=== PATIENT | female | born 1970 | race Caucasian/White ===

== ENCOUNTER → 2018-10-22 | Outpatient (CLI) | payer OTHER ==
[~2018-10-22] MED LIST: LISI1TAB3 PO; LISI1TAB5 PO
[2018-10-22 11:23] LABS: ALANINE AMINOTRANSFERASE 16 U/L (12-78); ALBUMIN 3.8 g/dL (3.4-5.0); ANION GAP 7 mmol/L (5-15); CALCIUM 8.6 mg/dL (8.5-10.1); CHLORIDE 110 mmol/L (98-107); CREATININE 0.97 mg/dL (0.55-1.02)
[2018-10-22 11:25] LABS: ALKALINE PHOSPHATASE 67 U/L (45-117); BILIRUBIN,TOTAL 0.4 mg/dL (0.2-1.0)
== END | disposition home or self-care (01) ==
LOC: STAR 09:56
PROVIDERS: ATTEND Orthopaedic Surgery
DX: M20.11 Hallux valgus (acquired), right foot (principal); M79.671 Pain in right foot
CPT/HCPCS: 36415; 80053

== ENCOUNTER 2018-11-19 08:56 | Day surgery (SDC) | payer OTHER ==
[~2018-11-19] VITALS: Ht 177.8 cm; Wt 102.7 kg
[2018-11-19 09:17] VITALS: BP 129/84
[2018-11-19] MEDS ORDERED: LACTATED RINGERS 1,000 ML IV SCH (09:47)
[2018-11-19] MEDS ORDERED: MIDAZOLAM 1 MG/ML, 2ML ONE (10:09)
[2018-11-19] MEDS ORDERED: FENTANYL PF 100 MCG/2ML ONE ×2 (10:09→12:11)
[2018-11-19] MEDS ORDERED: LIDOCAINE 1%, 20ML ONE (10:13)
[2018-11-19] MEDS ORDERED: BUPIVACAINE/PF 0.5% ONE (10:13)
[2018-11-19] MEDS ORDERED: ROPIvacaine/PF 0.5%, 30 ML ONE (10:15)
[2018-11-19] MEDS ORDERED: ONDANSETRON ODT 8 MG PO ONE (10:30)
[2018-11-19] MEDS ORDERED: ACETAMINOPHEN 500 MG TABLET PO ONE (10:30)
[2018-11-19] MEDS ORDERED: METOPROLOL 1 MG/ML, 5ML IV PRN (11:00)
[2018-11-19] MEDS ORDERED: hydrALAzine 20 MG/ML, 1ML IV PRN (11:00)
[2018-11-19] MEDS ORDERED: LORazepam 2 MG/ML, 1ML IVPush PRN (11:00)
[2018-11-19] MEDS ORDERED: ONDANSETRON 2MG/ML, 2ML IV PRN (11:00)
[2018-11-19] MEDS ORDERED: LABETALOL 5MG/ML, 20ML IV PRN (11:00)
[2018-11-19] MEDS ORDERED: METOCLOPRAMIDE 5 MG/ML, 2ML IV PRN (11:00)
[2018-11-19] MEDS ORDERED: MEPERIDINE/PF 25MG/0.5ML IVPush PRN (11:00)
[2018-11-19] MEDS ORDERED: OXYcodone 5 MG/5 ML ORAL.SOL UDC PO PRN (11:00)
[2018-11-19] MEDS ORDERED: PROPOFOL 50 ML ONE (11:18)
[2018-11-19] MEDS ORDERED: CEFAZOLIN 1,000 MG ONE ×2 (11:38)
[2018-11-19] MEDS ORDERED: LIDOCAINE-MPF 2% ,5ML ONE (11:38)
[2018-11-19] MEDS ORDERED: DEXAMETHASONE 4 MG/ML, 1ML ONE ×2 (11:38)
[2018-11-19] MEDS ORDERED: OXYcodone 5 MG/5 ML ORAL.SOL UDC ONE (12:11)
[2018-11-19] MEDS: FENTANYL PF 100 MCG/2ML IV PRN ×2 (12:13→12:20)
[2018-11-19] MEDS ORDERED: HYDROmorphone 2 MG/ML, 1ML ONE (12:24)
[2018-11-19] MEDS: HYDROmorphone 2 MG/ML, 1ML IVPush PRN ×3 (12:30→12:46)
[2018-11-19] MEDS ORDERED: MEPERIDINE/PF 25MG/ML,1ML ONE (12:56)
[2018-11-19] MEDS ORDERED: ONDANSETRON 2MG/ML, 2ML ONE (13:04)
[2018-11-19] MEDS ORDERED: METOCLOPRAMIDE 5 MG/ML, 2ML ONE (13:11)
== END 2018-11-19 15:45 | disposition home or self-care (01) ==
LOC: OUT 08:56
PROVIDERS: ATTEND Orthopaedic Surgery
DX: M20.12 Hallux valgus (acquired), left foot (principal); I10 Essential (primary) hypertension; Z72.89 Other problems related to lifestyle; Z79.899 Other long term (current) drug therapy
CPT/HCPCS: 28295; 64445; 73620; 76000; C1713; J0690; J1100; J1170; J2175; J2250; J2405; J2704; J2765; J2795; J3010; J7120; Q0162